=== PATIENT | male | born 1965 | race Caucasian/White ===

== ENCOUNTER 2017-03-09 08:53 | Emergency (ER) | payer SELFPAY ==
[~2017-03-09] VITALS: Ht 190.5 cm; Wt 106.8 kg
[~2017-03-09 08:53] MED LIST: NORCO 325 MG-51 TAB PO; ZOFRAN 4MG T4 MG/TAB PO
[2017-03-09 09:01] VITALS: BP 149/70; PULSE 77; TEMP 98.8
== END 2017-03-09 09:30 | disposition home or self-care (01) ==
LOC: COL.ER 08:53
DX: S92.402D Displaced unspecified fracture of left great toe, subsequent encounter for fracture with routine healing (principal); Z76.0 Encounter for issue of repeat prescription; W20.8XXD Other cause of strike by thrown, projected or falling object, subsequent encounter

== ENCOUNTER 2017-05-31 13:08 | Emergency (ER) | payer SELFPAY ==
[~2017-05-31] VITALS: Ht 190.5 cm; Wt 109.1 kg
[2017-05-31 13:11] VITALS: BP 156/87; PULSE 100; TEMP 99.2
[2017-05-31] MEDS ORDERED: NORCO 325 MG-51 TAB PO (14:07)
== END 2017-05-31 14:18 | disposition home or self-care (01) ==
LOC: COL.ER 13:08
DX: S46.211A Strain of muscle, fascia and tendon of other parts of biceps, right arm, initial encounter (principal); X50.0XXA Overexertion from strenuous movement or load, initial encounter; Y92.009 Unspecified place in unspecified non-institutional (private) residence as the place of occurrence of the external cause

== ENCOUNTER 2018-02-02 13:18 | Emergency (ER) | payer SELFPAY ==
[~2018-02-02] VITALS: Ht 190.5 cm; Wt 111.4 kg
[2018-02-02 13:25] VITALS: BP 161/96; PULSE 91; TEMP 98.7
== END 2018-02-02 14:11 | disposition left against medical advice (07) ==
LOC: COL.ER 13:18
DX: S63.501A Unspecified sprain of right wrist, initial encounter (principal); W01.0XXA Fall on same level from slipping, tripping and stumbling without subsequent striking against object, initial encounter